=== PATIENT | female | born 1935 | race Caucasian/White ===

== ENCOUNTER 2017-04-16 16:57 | Inpatient (IN) | payer MEDICARE, OTHER ==
[~2017-04-16] VITALS: Ht 144.8 cm; Wt 61.0 kg
[2017-04-16] MEDS: Heparin 5,000 Unit/mL Inj SUBQ SCH ×2 (08:30→16:30)
[~2017-04-16 16:57] MED LIST: AMLO10TA3 PO; ATOR10TA66 PO; CODE30TA PO; HYDR25TA4 PO; LEVO88TA4 PO; LOSA100T29 PO; MINO100T PO; MORP-32 PO; ZOLP5TAB6 PO
[2017-04-16 17:12] VITALS: BP 128/52; PULSE 60; RESP 12; O2SAT 99
--- NOTE | 2017-04-16 18:20 | DRSVH ---
PROCEDURE: CT BRAIN WITHOUT CONTRAST ([id number]) INDICATIONS: acute drowsiness TECHNIQUE: Noncontrast 4.5 mm thick angled axial sections acquired from the foramen magnum to the vertex, with c oronal reformats. COMPARISON: None. FINDINGS: Image quality: Excellent. CSF spaces: Basal cisterns are patent. No extra-axial fluid collections. The ventricles are symmet giovanni in size and shape. Brain: No intracranial bleeds or masses. There is mild cerebral volume loss for age, with resultant ventricular and sulcal prominence. There are scattered periventricular and deep white matter chroni c small vessel ischemic changes. There is decreased valencia-white differentiation within the left tempor al lobe which appears overall hypodense with respect to the right temporal lobe. There is intracrania l internal carotid artery atherosclerosis. Skull and face: Calvarium and visualized facial bones appear intact, without suspicious lesions. Sinuses: Visualized sinuses and mastoids are clear. IMPRESSION: 1. Decreased valencia-white differentiation of the left temporal lobe and overall increased left temporal lobe hypodensity suggesting subacute or early chronic infarct. If further characterization is alma decker, noncontrast MRI of the brain may be helpful. This finding was discussed with at Dr. Puri 6:20 PM on 04/16/17. 2. Mild findings likely associated with chronic microvascular ischemic changes. Dictated by: Marcela Montague M.D. on 04/16/2017 at 18:14 Approved by: Marcela Montague M.D. on 04/16/2017 at 18:19
[2017-04-16 18:40] LABS: BASOPHILS % (AUTO) 0.4 % (0-3); EOSINOPHILS % (AUTO) 2.3 % (0-5); MONOCYTES % (AUTO) 8.9 % (4-12); Mean Corpuscular Hemoglobin 27.2 pg (27.0-35.0); Mean Corpuscular Volume 87.2 fL (81-100); NEUTROPHILS % (AUTO) 71.2 % (40-74); Platelet Count 266 bil/L (150-400)
[2017-04-16 18:57] LABS: Magnesium 2.2 mg/dL (1.6-2.6)
[2017-04-16 19:47] LABS: APPEARANCE,URINE CLEAR (CLEAR,HAZY); COLOR,URINE YELLOW (YELLOW); OCCULT BLOOD,URINE NEGATIVE (NEGATIVE); UROBILINOGEN,URINE NORMAL (NORMAL)
--- NOTE | 2017-04-16 19:51 | ED.REPORT ---
HPI-General Illness Date of Service Apr 16, 2017 ED Provider: Zonia Guzmán MD Patient is an 81 year old female with a history of stroke, diabetes, hypertension and paroxysmal atrial fibrillation who presents to the ED via EMS due to intermittent increasing fatigue. Per the patient's friend, the patient was at lunch and continued to nod off, had slurred speech and then became slumped over in her chair. She states that she remembers being at lunch with her friends but does not recall nodding off. The patient's family states that since they have gotten to the ED at 1700 the patient has been intermittently somnolent and confused, which is not normal for the patient. The patient reports that she had a sudden onset right sided headache yesterday that she rated as a 5/10 but it has since resolved. Patient also complains that she was not able to sleep last night because she had nocturia, which was unusual for her and experienced palpitations. She also woke up with bilateral neck pain this morning, which has also resolved. The patient also reports that two night ago she felt as though she was going to pass out and briefly lost her vision. She states that this has happened before and it was thought to be due to a previous TIA. Patient denies chest pain, numbness, weakness, shortness of breath , extremity problems or recent medication changes. She is not currently on any anticoagulants. Nursing Notes Stated Complaint: BACK PAIN Chief Complaint: General Complaint Nursing Notes Reviewed: Yes Allergies: Coded Allergies: Penicillins (Verified Allergy, Unknown, Rash, 06/08/16) meperidine (Verified Allergy, Unknown, Restlessness, 06/08/16) NSAIDS (Non-Steroidal Anti-Inflamma (Verified Adverse Reaction, Severe, BLEEDING, 04/16/17) Scheduled Amlodipine (Amlodipine) 10 Mg Tablet 2.5 MG PO DAILY Aspirin (Aspirin) 81 Mg Tablet 81 MG PO DAILY Atorvastatin Calcium (Atorvastatin Calcium) 10 Mg Tablet 10 MG PO DAILY Hydrochlorothiazide (Hydrochlorothiazide) 25 Mg Tablet 25 MG PO QAM Levothyroxine (Levothyroxine) 88 Mcg Tablet 88 MG PO DAILY Losartan Potassium (Losartan Potassium) 100 Mg Tablet 100 MG PO QAM Minocycline (Minocycline) 100 Mg Tablet 100 MG PO QAM Morphine Sulfate ER (Morphine Sulfate ER) 15 Mg Tablet 15 MG PO TID Zolpidem (Zolpidem) 5 Mg Tablet 2.5 MG PO HS Scheduled PRN Codeine Sulfate (Codeine Sulfate) 30 Mg Tablet 30 MG PO TID PRN PRN For Pain General Time Seen by MD: 19:50 Chief Complaint Altered mental status Hx Obtained From: Patient, Other family... Arrived By: Ambulance Sudden in Onset?: Yes Onset Occurred: 1 - 4 hours ago Symptom Duration: Intermittent Severity: Current: No pain currently Recent Healthcare: No recent hospitalization, Recent doctor visit Similar Sx Previous: Yes Past Medical History Past Medical History stroke Reports: Diabetes mellitus, Hypertension Reports: Atrial fibrillation Smoking History Former Smoker Social History Alcohol Use: Denies alcohol use Drug Use: Denies drug use Other Social History: Good social support Ambulatory Status Independent Review of Systems Full Review of Systems Constitutional: Reports: Fatigue, Denies: Chills, Fever, Weakness - generalized Eyes: Reports: Visual loss bilateral Respiratory: Denies: Non-productive cough, Shortness of breath Cardiovascular: Reports: Palpitations, Denies: Chest pain Musculoskeletal: Reports: Neck pain, Denies: Extremity pain Skin: Denies Itching, Denies Rash Neurologic: Reports: Change LOC, Confusion, Headache, Slurred speech, Syncope, Denies: Numbness, Weakness Complete sys rev & neg: except as marked. Physical Exam Vital Signs Vital Signs Date Time Temp Pulse Resp B/P Pulse Ox O2 Delivery O2 Flow Rate FiO2 04/16/17 17:12 36.5 60 12 128/52 99 Room Air Initial VS: Reviewed, Vital signs normal General/Constitutional: Awake, Alert, No acute distress Head / Eyes: Atraumatic, Normocephalic, PERRL, EOMI Neck: Atraumatic, Supple, Non-tender, No carotid bruit Respiratory / Chest: Atraumatic, Breath sounds NL, Breath sounds = bilat, No respiratory distress Cardiovascular: Heart rate NL, Regular rhythm, Heart sounds NL Abdomen: Atraumatic, Soft, Non-tender Skin: Atraumatic, Color NL, No rash, Warm, Dry Neurologic: Oriented X3, Speech NL, No motor deficits, No sensory deficits Psychiatric: Affect NL, Mood NL Interpretation & Diagnostics Lab Results Interpretation Result Diagram: 04/16/17 1823 04/16/17 1823 Test 04/16/17 18:23 04/16/17 19:30 04/16/17 19:31 White Blood Count 9.1th/mm3 (3.8-10.1) Red Blood Count 4.30mil/mm3 (3.90-5.20) Hemoglobin 11.7g/dL (12.0-15.6) Hematocrit 37.5% (35.0-46.0) Mean Corpuscular Volume 87.2fL (81-100) Mean Corpuscular Hemoglobin 27.2pg (27.0-35.0) Mean Corpuscular Hemoglobin Concent 31.2% (32.0-37.0) Red Cell Distribution Width 13.7% (12.3-15.4) Platelet Count 266bil/L (150-400) Neutrophils (%) (Auto) 71.2% (40-74) Lymphocytes (%) (Auto) 16.9% (14-46) Monocytes (%) (Auto) 8.9% (4-12) Eosinophils (%) (Auto) 2.3% (0-5) Basophils (%) (Auto) 0.4% (0-3) Hold Purple Top Tube Received (Received) Prothrombin Time 10.0sec (8.1-12.5) Prothromb Time International Ratio 0.94ratio Activated Partial Thromboplast Time 28.4sec (22.8-33.0) Hold Blue Top Tube Received (Received) Sodium Level 138mEq/L (134-144) Potassium Level 4.0mEq/L (3.5-5.2) Chloride Level 98mEq/L (97-108) Carbon Dioxide Level 25mmol/L (18-29) Blood Urea Nitrogen 38mg/dL (8-27) Creatinine 1.36mg/dL (0.57-1.00) Estimat Glomerular Filtration Rate 53mL/min (>59) Glucose Level 103mg/dL (60-99) Calcium Level 9.5mg/dL (8.5-10.1) Magnesium Level 2.2mg/dL (1.6-2.6) Total Bilirubin 0.2mg/dL (0.0-1.2) Aspartate Amino Transf (AST/SGOT) 16U/L (0-50) Alanine Aminotransferase (ALT/SGPT) 11U/L (0-32) Alkaline Phosphatase 84U/L (25-165) Total Protein 6.9g/dL (6.4-8.4) Albumin 4.1g/dL (3.4-5.0) Triglycerides Level 177mg/dL (0-149) Cholesterol Level 157mg/dL (100-199) LDL Cholesterol, Calculated 75.600mg/dL (0-99) VLDL Cholesterol 35.400mg/dL HDL Cholesterol 46mg/dL (>39) Cholesterol/HDL Ratio 3.41 (0.0-4.4) Hold Red Top Tube Received (Received) Hold [place] Top Tube Received (Received) Hold Urine Received (Received) Urine Color Yellow (YELLOW) Urine Appearance Clear (CLEAR,HAZY) Urine pH 6.0 (5.0-8.0) Urine Specific [place] 1.020 (1.003-1.035) Urine Protein Negativemg/dL (NEG,TRACE) Urine Glucose (UA) Negativemg/dL (NEGATIVE) Urine Ketones Negativemg/dL (NEGATIVE) Urine Occult Blood Negative (NEGATIVE) Urine Nitrite Negative (NEGATIVE) Urine Bilirubin Negative (NEGATIVE) Urine Urobilinogen Normalmg/dL (NORMAL) Urine Leukocyte Esterase Negative (NEGATIVE) Urine RBC 0-2/hpf (0-2) Urine WBC 0-5/hpf (0-5) Urine Epithelial Cells None/hpf (NONE-MOD) Urine Crystals None seen (NONE SEEN) Urine Bacteria Few/hpf (NONE-FEW) Urine Hyaline Casts None/lpf (NONE) Urine Granular Casts None seen (NONE SEEN) Urine Waxy Casts None seen (NONE SEEN) Urine Red Blood Cell Casts None seen (NONE SEEN) Urine White Blood Cell Casts None seen (NONE SEEN) Urine Mucus None seen (None Seen) Urine Trichomonas None seen (NONE SEEN) Urine Yeast None (NONE SEEN) Urinalysis Comment None Urine Culture Reflexed Not indicated ECG Interpretation ECG Interpretation: nonspecific inferior T wave changes Time: 17:35 Interpreted by: ED physician Normal ECG Interpretation: Normal rate (61), Normal sinus rhythm CT Head Interpretation IMPRESSION: 1. Decreased valencia-white differentiation of the left temporal lobe and overall increased left temporal lobe hypodensity suggesting subacute or early chronic infarct. If further characterization is warranted, noncontrast MRI of the brain may be helpful. This finding was discussed with at Dr. Puri 6:20 PM on 04/16/17. 2. Mild findings likely associated with chronic microvascular ischemic changes. Dictated by: Marcela Montague M.D. on 04/16/2017 at 18:14 Approved by: Marcela Montague M.D. on 04/16/2017 at 18:19 Interpretation / Wet Read by: Interpret - Radiologist Re-Eval/Medical Decision Med Decision/Clinical Course AV node the description is unclear if the patient had syncope versus a neurologic process. According to her daughter she has been intermittently confused today which is unusual for her. The patient has significant cardiac risk factors and has had a prior stroke so she will be admitted for further evaluation. She has not had any recent medication changes. Time of Eval: 20:45 Re-Evaluation/Progress Note: Discussed plan for admit. Patient understands and agrees to plan. All questions were addressed. Consultation : Referral / Consult Name: Osmar Charles MD Consulted With: Hospitalist Call Returned at: 20:37 Full Stack Net Developer: Agrees with eval, Agrees with plan, Accepts admit Counseled Regarding: Diagnosis, Lab results, Need for admission Discharge & Departure Primary Impression: Altered level of consciousness Additional Impression: Syncope Syncope type: unspecified Qualified Code: R55 - Syncope and collapse Disposition: ADMITTED TO HOSPITAL Discharge Condition All VS Reviewed: Yes Condition: Stable Referrals: Ten Douglass MD (PCP) Catherine Attestation Portions of this note were transcribed by Abby Crowe. I, Dr. Guzmán personally performed the history, physical exam and medical decision-making; I reviewed and confirmed the accuracy of the information in the transcribed note. Signed by: Catherine Knapp, 04/16/17 and 2015 copies to: Ten Douglass MD, Jena M MD Apr 16, 2017 19:51 Sidra Crowe Apr 16, 2017 20:14
[2017-04-16] MEDS ORDERED: Ondansetron 2 mg/mL 2 mL Inj IVPUSH PRN ×2 (20:45→22:40)
[2017-04-16] MEDS ORDERED: Alum-Mag Hydrox-Simeth 30 mL Suspension PO PRN ×2 (20:45→22:40)
[2017-04-16 21:04] VITALS: BP 124/62; PULSE 84; RESP 18; O2SAT 98
[2017-04-16 21:11] VITALS: BP 154/61; PULSE 70; RESP 16; O2SAT 98
[2017-04-16] MEDS ORDERED: ASPI-973 PO (21:33)
[2017-04-16 22:08] VITALS: PULSE 71
[2017-04-16] MEDS ORDERED: Labetalol 5 mg/mL 20 mL Inj IVPUSH PRN (22:40)
[2017-04-16] MEDS ORDERED: Polyethylene Glycol (PEG) 17 Gm Powder PO PRN (22:40)
[2017-04-16 23:08] LABS: INR 0.94 ratio
[2017-04-17] VITALS (7 sets, daily range): BP systolic 115–145; BP diastolic 56–71; PULSE 58–71; RESP 16–18; O2SAT 97–100
[2017-04-17] MEDS: Heparin 5,000 Unit/mL Inj SUBQ SCH ×4 (00:01→18:34)
[2017-04-17] MEDS: Lactated Ringer's 1,000 ML IV SCH ×2 (00:01→12:57)
[2017-04-17] MEDS: Morphine ER 15 mg (MS Contin) Tablet PO SCH ×3 (00:04→21:05)
[2017-04-17 01:21] LABS: APPEARANCE,URINE CLEAR (CLEAR,HAZY); COLOR,URINE STRAW (YELLOW); OCCULT BLOOD,URINE TRACE (NEGATIVE); UROBILINOGEN,URINE NORMAL (NORMAL)
--- NOTE | 2017-04-17 01:45 | PCM.HPMED ---
Subjective Date of Service Apr 17, 2017 Primary Provider: Admitting Physician: Osmar Charles MD Primary Care Physician: Ten Douglass MD Attending Physician: Osmar Charles MD Admit Status: From the Emergency Department, Remote Telemetry Chief Complaint: Decreased level of consciousness History of Present Illness: Barbara Travis is an 81-year-old woman with past medical history significant for diet controlled diabetes mellitus, hypertension, paroxysmal atrial fibrillation, and history of endarterectomy who presents for evaluation of decreased level of consciousness. Patient states she was in her normal state of health today until she went for dinner at 1545. The patient remembers arriving at the [facility] but cannot recall anything after this point. According to her friend who she was eating dinner with she began to have some slurred speech and nodded off and then proceeded to slump over in her chair. 911 was called and the patient was brought to the emergency department. The patient does not recall these events and according to the daughter and the ED physician she was quite groggy and repeatedly fell asleep initially on arrival to the hospital. At the time of my examination she was extremely clear and sharp and an excellent historian. She denies any preceding symptoms such as chest pain, shortness of breath, nausea, vomiting, headache, dizziness, lightheadedness, or palpitations. She does note that on Saturday, 04/15, she had a sharp headache that was located in the right temporal region along with right neck pain. The headache has since resolved although her neck is still slightly stiff. She states she has had previous workup for TIA but CT and MRI have never shown a definitive CVA. She was found to have a right 95% stenotic internal carotid artery which she underwent endarterectomy in 1999. Interestingly the patient also over the past 10 years has intermittently had episodes where suddenly she loses her vision. These episodes can last seconds to minutes and resolve on their own. On presentation to the ED the patient's vitals were temperature 36.5, pulse 60, respiratory rate 12, blood pressure 128/52, saturating 99% on room air. Labs were unremarkable aside from BUN of 38 and creatinine of 1.36 which the patient states is her baseline although I am unable to find labs to compare to. Urine tox screen was positive only for opiates which she does take morphine extended release 15 mg twice a day. The CT of the brain was completed in the ED which revealed decreased valencia white differentiation of the left temporal lobe and overall increased left temporal lobe hypodensity suggesting subacute to chronic infarct and mild findings likely associated with chronic microvascular ischemic changes. Review of Systems: Comprehensive review of systems was conducted with the patient and found to be negative except as noted above in HPI. Allergies Coded Allergies: Penicillins (Verified Allergy, Unknown, Rash, 06/08/16) meperidine (Verified Allergy, Unknown, Restlessness, 06/08/16) NSAIDS (Non-Steroidal Anti-Inflamma (Verified Adverse Reaction, Severe, BLEEDING, 04/16/17) Home Medications Amlodipine Atorvastatin Hydrochlorothiazide Levothyroxine Losartan Morphine extended release Zolpidem PMH Hypertension Paroxysmal atrial fibrillation Diabetes mellitus which is diet controlled Right internal carotid stenosis status post endarterectomy Surgical History Endarterectomy in 1999 Tonsillectomy Numerous breast biopsies Family History Mother - breast and uterine cancer Social History Hx Alcohol Use: No Hx Substance Use: No Smoking Status: Former Smoker (quit in 1999) Years of Smokin Living Arrangement: Independent Halfway Exam Vital Signs Vital Sign - Last Date Time Temp Pulse Resp B/P Pulse Ox O2 Delivery O2 Flow Rate FiO2 04/17/17 00:14 36.8 71 18 130/67 100 Room Air Exam General: No acute distress, well-developed, well-nourished, appropriately interactive HEENT: Normocephalic, atraumatic. No pain to palpation of the temporal area bilaterally. External ears without defect. Pupils equal, round, and reactive to light and accommodation. Anicteric sclerae, moist conjunctivae, and no lid lag. Oropharynx free of erythema and cobble stoning with moist mucosa. Neck: Supple with full range of motion. No jugular venous distension. No bruits. No lymphadenopathy or thyromegaly. Cardiovascular: Regular rate and rhythm with no murmurs, rubs, or gallops appreciated Pulmonary: Clear to auscultation bilaterally with no crackles, wheezes, or rhonchi. Normal respiratory effort with no use of accessory muscles. Abdomen: Bowel tones present. Soft, nontender, nondistended. No hepatosplenomegaly or masses appreciated. Extremities: No clubbing, cyanosis, edema, or lymphadenopathy appreciated. Skin: Normal temperature, turgor, and texture; no rash, ulcers, or subcutaneous nodules appreciated. Neurological: Cranial nerves grossly intact. Normal muscle strength, tone, and bulk. Reflexes, coordination, and sensory function within normal limits. No known gait impairment. Psychiatric: Normal mood and affect. Alert and oriented to person, place, and time. Lab and Diagnostics Result Diagram: 04/16/17182204/16/171822 X-Rays, CTs and MRIs CT BRAIN WITHOUT CONTRAST ([id number]) IMPRESSION: 1. Decreased valencia-white differentiation of the left temporal lobe and overall increased left temporal lobe hypodensity suggesting subacute or early chronic infarct. If further characterization is warranted, noncontrast MRI of the brain may be helpful. This finding was discussed with at Dr. Puri 6:20 PM on 04/16/17. 2. Mild findings likely associated with chronic microvascular ischemic changes. Dictated by: Marcela Montague M.D. on 04/16/2017 at 18:14 Approved by: Marcela Montague M.D. on 04/16/2017 at 18:19 12-lead ECG Normal sinus rhythm with a rate of 61 Assessment & Plan Barbara Travis is an 81-year-old woman with past medical history significant for diet controlled diabetes mellitus, hypertension, paroxysmal atrial fibrillation, and history of endarterectomy who presents for evaluation of decreased level of consciousness. Decreased level of consciousness, present on admission, resolved. Etiology unknown. Question whether patient had a syncopal episode versus TIA versus other etiology. Patient at this time is back to baseline. - Urine tox screen negative aside from opioids which is congruent with patient' s home regimen of morphine extended release. - TIA workup as below. - Vitamin B12 ordered and pending. - Monitor on continuous telemetry. Possible TIA, present on admission, active. Unsure whether patient had a TIA but symptoms included slurred speech and patient has history of right internal carotid artery stenosis status post endarterectomy. - Head CT without contrast results as above. - EKG showed normal sinus rhythm with rate of 61. - Monitor on telemetry to rule out atrial fibrillation. - MRI of the brain ordered for tomorrow. - Carotid ultrasound ordered. - Echo ordered. - Consider lower extremity ultrasound to rule out DVTs. - Allow for permissive hypertension to not treat unless SBP >220 or DBP >120 - Aspirin 325 mg given. - Atorvastatin 10 mg daily continued. Hypertension, present on admission, chronic. - Continue home regimen of amlodipine, hydrochlorothiazide, and losartan. Hypothyroidism, present on admission, chronic. - Continue home regimen of levothyroxine. Diabetes mellitus, present on admission, chronic. - Patient's last hemoglobin A1c was 5.8. She states that she is diet controlled does not take any medication. Patient is admitted under observation status with expected length of stay less than 2 midnights due to severity of presenting symptoms, risk of adverse event, and complexity of treatment plan. Pain Evaluation: Adequate Pain Control GI Prophylaxis: Not indicated VTE Prophylaxis: Sub-Q Heparin (Unfractionated), SCDs Resuscitation Status: CPR: Attempt Resuscitation KATHRYN MCKEON DO Apr 17, 2017 01:44
[2017-04-17 06:34] LABS: BASOPHILS % (AUTO) 0.6 % (0-3); EOSINOPHILS % (AUTO) 3.2 % (0-5); MONOCYTES % (AUTO) 8.7 % (4-12); Mean Corpuscular Hemoglobin 27.4 pg (27.0-35.0); Mean Corpuscular Volume 87.3 fL (81-100); Platelet Count 235 bil/L (150-400)
[2017-04-17] MEDS ORDERED: Morphine ER 15 mg (MS Contin) Tablet PO SCH (08:30)
--- NOTE | 2017-04-17 11:11 | DRSVH ---
PROCEDURE: US BILATERAL DUPLEX DOPPLER IMAGING OF THE CAROTIDS ([id number]) INDICATIONS: TIA TECHNIQUE: Color and pulse Doppler interrogation was performed of both carotid systems, with image documentation and velocity measurements. COMPARISON: None. FINDINGS: All stenosis calculations are based on NASCET criteria. Right side: Brachial blood pressure: Not measured Common Carotid Artery(Distal) PSV: 82.10 cm/s Internal Carotid Artery PSV- Proximal: 73.60 cm/s Mid-lon.60 cm/s Distal: 145.20 cm/s EDV - Proximal: 14.70 cm/s Mid-lon cm/s Distal: 42.90 cm/s External Carotid Artery(Proximal) PSV: 116.50 cm/s, 121.10 cm/s ICA/CCA PSV ratio: 1.77 Gorman scale imaging description: Mild echogenic plaque Percent internal carotid artery stenosis: 50-69%. Vertebral artery: Flow direction is antegrade. Left side: Brachial blood pressure: Not measured. Common Carotid Artery(Distal) PSV: 74.60 cm/s Internal Carotid Artery PSV - Proximal: 181.40 cm/s Mid-lon.20 cm/s, 154.80 cm/s Distal: 138.10 cm/s, 143.80 cm/s EDV - Proximal: 50.60 cm/s Mid-lon.10 cm/s, 53.80 cm/s Distal: 22.80 cm/s, 41.30 cm/s External Carotid Artery(Proximal) PSV: 97.90 cm/s ICA/CCA PSV ratio: 4.04 Gorman scale imaging description: Marginal echogenic and calcified plaque Percent internal carotid artery stenosis: 70% to near occlusion. Vertebral artery: Flow direction is antegrade. IMPRESSION: 1. Hemodynamically significant stenosis in the left ICA, 70% to near occlusion. Surgical consultation suggested. 2. 50-69% stenosis right ICA. 3. Both vertebral arteries show antegrade flow. Dictated by: Irvin Vincent M.D. on 04/17/2017 at 11:05 Approved by: Irvin Vincent M.D. on 04/17/2017 at 11:09
[2017-04-17] MEDS: [UNRECOGNIZED DRUG - OTHER] PO PRN ×2 (11:37→20:48)
--- NOTE | 2017-04-17 12:52 | DRSVH ---
PROCEDURE: MRI BRAIN WITHOUT CONTRAST ([id number]) INDICATIONS: R/O CVA TECHNIQUE: Non-contrast axial T1 spin echo, axial T2 fast spin echo, sagittal and axial FLAIR, coronal T2 fast s pin echo, axial gradient echo, axial diffusion and ADC through the brain. COMPARISON: [facility], CT, CT BRAIN WO CON, 04/16/2017, 17:52. [facility], MR, MR BRAIN WO CON, 04/16/2016, 7:16. FINDINGS: Image quality: Excellent. CSF spaces: Ventricles appear symmetric in size and shape. Basal cisterns are patent. No extra-axi al fluid collections. Brain: No intracranial bleeds or mass effects. There is cerebral volume loss for age. There are pe riventricular and deep white matter chronic small vessel ischemic changes. Brainstem appears normal. Diffusion-weighted images show no acute ischemic insults. No chronic ischemic insults. Normal int ravascular flow voids are present. Skull and face: Calvarial bone marrow is normal in overall signal. A small intraosseous hemangioma i s present within the left occipital bone. Orbits are normal. Sinuses: Sinuses and mastoids are clear. IMPRESSION: 1. No acute intracranial findings. Specifically, no acute or subacute infarct. 2. Mild findings likely associated with chronic microvascular ischemic changes. Dictated by: Marcela Montague M.D. on 04/17/2017 at 12:38 Approved by: Marcela Montague M.D. on 04/17/2017 at 12:50
--- NOTE | 2017-04-17 16:06 | PCM.PNMED ---
Subjective Date of Service Apr 17, 2017 Subjective Speech clear. No motor weakness. Patient states she does not remember any of events of last night. MRI negative for acute stroke. Carotid duplex shows left ICA 70% to complete occlusion Exam Vital Signs Vital Sign - Last Date Time Temp Pulse Resp B/P Pulse Ox O2 Delivery O2 Flow Rate FiO2 04/17/17 13:43 58 04/17/17 12:44 36.7 18 138/71 99 Room Air Intake and Output 04/16/17 04/16/17 04/17/17 Cumulative From/Thru 15:00 23:00 07:00 04/16/17 17:12 - 04/17/17 06:20 Intake Total 906 ml 906 ml Output Total 750 ml 750 ml Balance 156 ml 156 ml Intake Oral 400 ml 400 ml IV Total 506 ml 506 ml Output Urine Total 750 ml 750 ml # Bowel Movements 0 0 Lab and Diagnostics Result Diagram: 04/17/1751604/17/17516 X-Rays, CTs and MRIs CT BRAIN WITHOUT CONTRAST ([id number]) IMPRESSION: 1. Decreased valencia-white differentiation of the left temporal lobe and overall increased left temporal lobe hypodensity suggesting subacute or early chronic infarct. If further characterization is warranted, noncontrast MRI of the brain may be helpful. This finding was discussed with at Dr. Puri 6:20 PM on 04/16/17. 2. Mild findings likely associated with chronic microvascular ischemic changes. Dictated by: Marcela Montague M.D. on 04/16/2017 at 18:14 Approved by: Marcela Montague M.D. on 04/16/2017 at 18:19 PROCEDURE: US BILATERAL DUPLEX DOPPLER IMAGING OF THE CAROTIDS ([id number]) INDICATIONS: TIA IMPRESSION: 1. Hemodynamically significant stenosis in the left ICA, 70% to near occlusion. Surgical consultation suggested. 2. 50-69% stenosis right ICA. 3. Both vertebral arteries show antegrade flow. Dictated by: Irvin Vincent M.D. on 04/17/2017 at 11:05 PROCEDURE: MRI BRAIN WITHOUT CONTRAST ([id number]) INDICATIONS: R/O CVA IMPRESSION: 1. No acute intracranial findings. Specifically, no acute or subacute infarct. 2. Mild findings likely associated with chronic microvascular ischemic changes. Dictated by: Marcela Montague M.D. on 04/17/2017 at 12:38 12-lead ECG Normal sinus rhythm with a rate of 61 Assessment & Plan Barbara Travis is an 81-year-old woman with past medical history significant for diet controlled diabetes mellitus, hypertension, paroxysmal atrial fibrillation, and history of endarterectomy who presents for evaluation of decreased level of consciousness. # Breief loss of consciousness due to TIA , present on admission, resolved. - Urine tox screen negative aside from opioids which is congruent with patient' s home regimen of morphine extended release. - Monitor on continuous telemetry. #Recurrent TIA, present on admission, active. patient had a TIA symptoms included slurred speech and patient has history of right internal carotid artery stenosis status post endarterectomy. Patient had had also history of brief visual disturbance probably caused by TIA - Head CT without contrast results as above. MRI negative for acute stroke. - EKG showed normal sinus rhythm with rate of 61. - Monitor on telemetry to rule out atrial fibrillation. - MRI of the brain ordered for tomorrow. - Carotid shows left ICA 70% to near complete occlusion. Consulted surgery for evaluation of endarterectomy - Echo pending - Allow for permissive hypertension to not treat unless SBP >220 or DBP >120. His losartan and hydrochlorothiazide - Aspirin 325 mg given. - Increased Atorvastatin to 40 mg from 10 mg daily #Hypertension, present on admission, chronic. - Continue home regimen of amlodipine, hold hydrochlorothiazide, and losartan. #Hypothyroidism, present on admission, chronic. - Continue home regimen of levothyroxine. #Diabetes mellitus, present on admission, chronic. - Patient's last hemoglobin A1c was 5.8. She states that she is diet controlled does not take any medication. Disposition: Discharge home tomorrow pending surgical evaluation GI Prophylaxis: Not indicated VTE Prophylaxis: Sub-Q Heparin (Unfractionated), SCDs VTE Mechanical Devices: Intermittant Pneumatic CD Resuscitation Status: CPR: Attempt Resuscitation Kwame Cole MD Apr 17, 2017 16:06
--- NOTE | 2017-04-17 17:19 | DRSVH ---
[facility] [address] [place] [address] Echocardiogram Report Name: JOSÉ MIGUEL SNELL JStudy Date: 09/2017Height: 57 in Hospital Exam Location: [facility] Weight: 133 lb Gender: Female BSA: 1.5 m2 : 1935 Age: 81 yrs BP: 122/66 mmHg Reason For Study: TIA Ordering Physician: Juan Alberto Bojorquez Performed By: Aron Franz Referring Physician: Dr. Ten Douglass Interpretation Summary There is normal left ventricular wall thickness. The ejection fraction is estimated to be 60-65%. There is mild mitral regurgitation. The right ventricular systolic pressure is estimated at 20 mmHg assuming a right atrial pressure of 3 mm Hg. Compared to the prior echo report on 12.17.16, there is no significant change. Procedure: A two-dimensional transthoracic echocardiogram with color flow and Doppler was performed. The study quality was technically good. Comparison is made with the echocardiogram of 12/17/16. A saline contrast injection was performed to assess for cardiac shunting. The patient was in normal sinus rhythm during the exam. Left Ventricle: The left ventricle is normal in size. There is normal left ventricular wall thickness. The ejection fraction is estimated to be 60-65%. There are no focal wall motion abnormalities. Right Ventricle: The right ventricle is normal in size and function. Atria: The left atrium is mildly dilated. Right atrial size is normal. Injection of contrast documented no interatrial shunt. Mitral Valve: The mitral valve is normal in structure and function. There is mild mitral annular calcification. There is mild mitral regurgitation. Aortic Valve: The aortic valve is trileaflet. The aortic valve opens well. There is mild aortic valve sclerosis. No aortic regurgitation is present. Tricuspid Valve: The tricuspid valve is normal in structure and function. There is trace tricuspid regurgitation. The right ventricular systolic pressure is estimated at 20 mmHg assuming a right atrial pressure of 3 mm Hg. Pulmonic Valve: The pulmonic valve is normal in structure and function. There is trace pulmonic regurgitation. Great Vessels: The aortic root is normal size. The dimensions of the ascending aorta are normal. The pulmonary artery is normal size. The IVC is of normal diameter and collapses greater than 50% with a sniff. This suggests a low right atrial pressure of 3 mm Hg. Pericardium/ Pleura There is no pericardial effusion. There is no pleural effusion. MMode/2D Measurements & Calculations LVIDd: 4.4 cm LA dimension: 3.0 cm RA long axis Ao root diam LVIDs: 2.9 cm FS: 34.9 % LA A2 area: 17.8 cm RA area Aortic Jxn EPSS: 0.21 cm LA A4 area: 15.9 cm IVSd: 0.74 cm LA length (vol): 4.6 cm : 12.9 cm asc Aorta LVPWd: 0.82 cm LA vol: 52.3 ml RA vol: 29.3 mlDiam: 2.5 cm LA vol index RA : 19.4 mm2 IVC diam: 1.2 cm LV rachel. diameter/BSA LV sys. diameter/BSA (cm/m^2): 2.9 (cm/m^2): 1.9 Doppler Measurements & Calculations Ao V2 max MV E max mihai MV E/A: 0.93 TR max mihai : 124.6 cm/sec : 84.0 cm/sec Med Peak E' Mihai : 203.6 cm/sec Ao max PG MV A max mihai TR max PG : 6.2 mmHg : 90.2 cm/sec E/E' med: 13.6 : 16.6 mmHg Ao mean PG PA V2 max : 3.6 mmHg : 79.7 cm/sec PA mean PG PA Accel Time : 0.11 sec MV dec time Ao V2 mean PA V2 mean : 0.15 sec : 90.7 cm/sec : 59.9 cm/sec Ao V2 VTI: 32.7 cm PA pr(Accel) : 31.6 mmHg Electronically signed by: Michael Merchant on Reading Physician:04/17/2017 05:20 PM
[2017-04-18] VITALS (8 sets, daily range): BP systolic 106–152; BP diastolic 58–78; PULSE 55–68; RESP 16; O2SAT 98–100
[2017-04-18] MEDS: Heparin 5,000 Unit/mL Inj SUBQ SCH ×3 (02:18→18:20)
[2017-04-18] MEDS: Morphine ER 15 mg (MS Contin) Tablet PO SCH ×3 (08:49→20:42)
[2017-04-18] MEDS: [UNRECOGNIZED DRUG - OTHER] PO PRN ×2 (08:58→15:22)
--- NOTE | 2017-04-18 15:52 | PCM.PNMED ---
Subjective Date of Service Apr 18, 2017 Subjective Patient reportedly had a brief episode of slurring of speech overnight per daughter at bedside. Speech back to baseline and clear now. No motor or sensory deficit complained Exam Vital Signs Vital Sign - Last Date Time Temp Pulse Resp B/P Pulse Ox O2 Delivery O2 Flow Rate FiO2 04/18/17 13:21 36.9 65 16 111/77 99 Room Air Intake and Output 04/17/17 04/17/17 04/18/17 Cumulative From/Thru 15:00 23:00 07:00 04/16/17 17:12 - 04/18/17 06:23 Intake Total 1566 ml 400 ml 2872 ml Output Total 750 ml 1500 ml Balance 1566 ml -350 ml 1372 ml Intake Oral 600 ml 400 ml 1400 ml IV Total 966 ml 1472 ml Output Urine Total 750 ml 1500 ml # Voids 5 5 # Bowel Movements 0 0 0 Exam General: No acute distress, well-developed, well-nourished, appropriately interactive HEENT: Normocephalic, atraumatic. No pain to palpation of the temporal area bilaterally. External ears without defect. Pupils equal, round, and reactive to light and accommodation. Anicteric sclerae, moist conjunctivae, and no lid lag. Oropharynx free of erythema and cobble stoning with moist mucosa. Neck: Supple with full range of motion. No jugular venous distension. No bruits. No lymphadenopathy or thyromegaly. Cardiovascular: Regular rate and rhythm with no murmurs, rubs, or gallops appreciated Pulmonary: Clear to auscultation bilaterally with no crackles, wheezes, or rhonchi. Normal respiratory effort with no use of accessory muscles. Abdomen: Bowel tones present. Soft, nontender, nondistended. No hepatosplenomegaly or masses appreciated. Extremities: No clubbing, cyanosis, edema, or lymphadenopathy appreciated. Skin: Normal temperature, turgor, and texture; no rash, ulcers, or subcutaneous nodules appreciated. Neurological: Cranial nerves grossly intact. Normal muscle strength, tone, and bulk. Reflexes, coordination, and sensory function within normal limits. No known gait impairment. Psychiatric: Normal mood and affect. Alert and oriented to person, place, and time. IVs and Medications Medications Reviewed: Medications were reviewed in detail Lab and Diagnostics Result Diagram: 7/12/17 0517 7/12/17 0517 X-Rays, CTs and MRIs CT BRAIN WITHOUT CONTRAST ([id number]) IMPRESSION: 1. Decreased valencia-white differentiation of the left temporal lobe and overall increased left temporal lobe hypodensity suggesting subacute or early chronic infarct. If further characterization is warranted, noncontrast MRI of the brain may be helpful. This finding was discussed with at Dr. Puri 6:20 PM on 04/16/17. 2. Mild findings likely associated with chronic microvascular ischemic changes. Dictated by: Marcela Montague M.D. on 04/16/2017 at 18:14 Approved by: Marcela Montague M.D. on 04/16/2017 at 18:19 PROCEDURE: US BILATERAL DUPLEX DOPPLER IMAGING OF THE CAROTIDS ([id number]) INDICATIONS: TIA IMPRESSION: 1. Hemodynamically significant stenosis in the left ICA, 70% to near occlusion. Surgical consultation suggested. 2. 50-69% stenosis right ICA. 3. Both vertebral arteries show antegrade flow. Dictated by: Irvin Vincent M.D. on 04/17/2017 at 11:05 PROCEDURE: MRI BRAIN WITHOUT CONTRAST ([id number]) INDICATIONS: R/O CVA IMPRESSION: 1. No acute intracranial findings. Specifically, no acute or subacute infarct. 2. Mild findings likely associated with chronic microvascular ischemic changes. Dictated by: Marcela Montague M.D. on 04/17/2017 at 12:38 12-lead ECG Normal sinus rhythm with a rate of 61 Cardiac Echo Impressions Interpretation Summary There is normal left ventricular wall thickness. The ejection fraction is estimated to be 60-65%. There is mild mitral regurgitation. The right ventricular systolic pressure is estimated at 20 mmHg assuming a right atrial pressure of 3 mm Hg. Compared to the prior echo report on 12.17.16, there is no significant change. Assessment & Plan Barbara Travis is an 81-year-old woman with past medical history significant for diet controlled diabetes mellitus, hypertension, paroxysmal atrial fibrillation, and history of endarterectomy who presents for evaluation of decreased level of consciousness. # Breief loss of consciousness due to TIA , present on admission, resolved. - Urine tox screen negative aside from opioids which is congruent with patient' s home regimen of morphine extended release. - Monitor on continuous telemetry. #Recurrent TIAs, present on admission, active. patient had a TIA symptoms included slurred speech and patient has history of right internal carotid artery stenosis status post endarterectomy. Patient had also history of brief visual disturbance probably caused by TIA few weeks prior to presentation. She also reportedly had a episode of slurring of speech last night, -Discussed case with neurology Dr. Diop , he recommends double antiplatelet with Plavix and aspirin pending surgical evaluation. He also initially considered CT angiogram of brain to assess intracranial stenoses but deferred due to borderline creatinine clearance. Recommends urgent surgical evaluation. -spoke with surgery , he will evaluate the patient later today after OR , will keep patient nothing by mouth after midnight in case surgical intervention is decided - Head CT without contrast results as above. MRI negative for acute stroke. - EKG showed normal sinus rhythm with rate of 61. - Monitor on telemetry to rule out atrial fibrillation. - Carotid shows left ICA 70% to near complete occlusion. Consulted surgery for evaluation of endarterectomy - Echo unremarkable - Allow for permissive hypertension to not treat unless SBP >220 or DBP >120. Hold losartan, amlodipine and hydrochlorothiazide - Aspirin 325 mg given. Started Plavix 75 mg daily today 04/18 - Increased Atorvastatin to 40 mg from 10 mg daily #Hypertension, present on admission, chronic. - hold home regimen of amlodipine, hydrochlorothiazide, and losartan. #Hypothyroidism, present on admission, chronic. - Continue home regimen of levothyroxine. #Diabetes mellitus, present on admission, chronic. - Patient's last hemoglobin A1c was 5.8. She states that she is diet controlled does not take any medication. Disposition: Pending surgical evaluation GI Prophylaxis: Not indicated VTE Prophylaxis: Sub-Q Heparin (Unfractionated), SCDs VTE Mechanical Devices: Intermittant Pneumatic CD Resuscitation Status: CPR: Attempt Resuscitation Kwame Cole MD Apr 18, 2017 15:52
--- NOTE | 2017-04-18 22:07 | CONS ---
[address] [address] CONSULTATION REPORT PATIENT: JOSÉ MIGUEL SNELL : 1935 MR#: [id number] ADMIT: 04/16/2017 JOB ID: [id number] DATE OF SERVICE: 04/18/2017 CHIEF COMPLAINT: Decreased level of consciousness. HISTORY OF PRESENT ILLNESS: I am asked to evaluate the patient at the request of Dr. Cole. Actually, General Surgery was consulted by phone yesterday with Dr. Solomon, who does not perform carotid surgery, so I was asked to evaluate her today. The patient has a personal history of carotid stenosis, having undergone a right carotid endarterectomy by Dr. Armando Garcia in 1999. She was admitted to the hospitalist service here on April 17 after she presented with an episode of slurred speech at dinner followed by an episode where she slumped over in her chair and after being aroused had no recollection of the event which seemed to have taken several minutes. She was brought in by EMS. On further questioning, she has had multiple episodes over the past year where she has transient loss of vision. It is difficult to get much information about this from her, but it sounds like it happens in both eyes and can happen suddenly and lasts for several minutes and occasionally longer and resolves on its own. She also describes episodes of word-finding difficulties over the past several months. She was worked up with a CT scan of the brain which showed some chronic microvascular ischemic changes. There is some decreased valencia-white differentiation in the left temporal lobe suggesting subacute or early chronic infarct, but brain MRI was recommended. MRI of the brain showed no acute or subacute infarct. There were findings associated with chronic microvascular ischemic changes. She had a carotid duplex which showed that on the right side she had 50% to 69% internal carotid artery stenosis. On the left, she had more high-grade stenosis, estimated at 70% to near occlusion. Peak systolic velocity in the internal carotid artery on the right was 301.2 cm/second, with an end-diastolic velocity max of 53.8. IC to CC ratio was 4.04. There was echogenic and calcified plaque. Flow in both vertebral arteries was antegrade. Today, she basically feels like her normal self, although she is fatigued and has had right-sided headache. She did have an episode of slurred speech overnight last night as well, but her speech has been at baseline all day today. PAST MEDICAL HISTORY: Diet-controlled diabetes mellitus, hypertension, paroxysmal atrial fibrillation, carotid artery stenosis, TIAs, hypothyroidism, hyperlipidemia. PAST SURGICAL HISTORY: Right carotid endarterectomy with patch angioplasty in 1999, tonsillectomy, multiple breast biopsies. SOCIAL HISTORY: She quit smoking in 1999 but had a 16-apnn-cyse history. She does not drink alcohol and does not use illicit drugs. FAMILY HISTORY: Mother had breast and uterine cancer. REVIEW OF SYSTEMS: A 10-point review of systems is negative except as described in history of present illness. Specifically, she denies weakness. PHYSICAL EXAMINATION: Body mass index 29.6, temperature 36.6, pulse 58, blood pressure 151/78, saturation 99% on room air. In general, she is sitting up in bed, in no acute distress. HEENT: Sclerae are anicteric. Mucous membranes are moist. Neck: She has a right vertical neck scar. There is a mild bruit in the left internal carotid artery. There is no jugular venous distention. Chest is clear. Heart: Regular rate and rhythm. No murmurs. Extremities: Radial pulses are 2/2 bilaterally. Dorsalis pedis and posterior tibial pulses are 2/2 bilaterally. There is no peripheral edema. Neuro: Cranial nerves 2-12 are intact. Motor and sensory function are grossly intact and strength is full. She is alert and oriented x3 with normal speech. IMAGING: As described in history of present illness. LABORATORY: White blood cell count is 8.1, hematocrit 35.1, creatinine 1.17. INR 0.94. ASSESSMENT AND PLAN: An 81-year-old woman with symptomatic high-grade left internal carotid stenosis with crescendo or recurrent transient ischemic attacks. I do recommend that she undergo a left carotid endarterectomy with patch angioplasty, and I think the best timing would be for her to undergo surgery prior to her being discharged from the hospital. We talked about the technical aspects of surgery, and we discussed risks of surgery, including, but not limited to, bleeding, stroke, nerve injuries, heart attack. I have talked to my partner, Dr. Low Santillan, who will meet her and discuss the operation with her tomorrow as well. The tentative plan will be to proceed with surgery tomorrow with Dr. Santillan. She will be made n.p.o. after midnight. All her questions were answered.
[2017-04-19] VITALS (29 sets, daily range): BP systolic 90–156; BP diastolic 35–74; PULSE 54–80; RESP 10–18; O2SAT 94–100
[2017-04-19] MEDS: Heparin 5,000 Unit/mL Inj SUBQ SCH ×3 (01:23→16:30)
[2017-04-19 06:32] LABS: BASOPHILS % (AUTO) 0.6 % (0-3); EOSINOPHILS % (AUTO) 2.4 % (0-5); Mean Corpuscular Hemoglobin 26.9 pg (27.0-35.0); Mean Corpuscular Volume 87.1 fL (81-100); NEUTROPHILS % (AUTO) 65.5 % (40-74); Platelet Count 243 bil/L (150-400)
[2017-04-19 07:00] LABS: INR 0.93 ratio
[2017-04-19] MEDS: [UNRECOGNIZED DRUG - OTHER] PO PRN ×2 (07:51→20:50)
[2017-04-19] MEDS: Morphine ER 15 mg (MS Contin) Tablet PO SCH ×3 (07:57→20:21)
--- NOTE | 2017-04-19 11:39 | PROG NOTE ---
[address] [address] PROGRESS NOTE PATIENT: JOSÉ MIGUEL SNELL : 1935 MR#: [id number] ADMIT: 04/16/2017 JOB ID: [id number] DATE: 04/19/2017 SUBJECTIVE: The patient is 81 years old. She has had intermittent episodes of difficulty speaking. She is described at her halfway home as having slurred speech. She is seen together with one of her daughters but her other daughter who is not present when I interviewed her also observed slurred speech on the night of admission. She has a past history of a right carotid endarterectomy done [address] Armando Garcia. She has a carotid duplex exam that shows progression from a previous duplex exam. She currently has on the left side a peaked left internal carotid systolic velocity of 300 and end-diastolic of 50, with an internal carotid to common carotid peak systolic velocity ratio of 4. There is echogenic and calcific plaque identified. It is in the range of 70% to near occlusion. Previously, it was in the range of 50% to 69%. She has a 50% to 69% stenosis of the right internal carotid and bilateral antegrade flow of her vertebrals. Her MR scan of her brain shows no stroke. She is currently on aspirin and Plavix. Plavix was started yesterday. She had an echocardiogram that shows an ejection fraction of 60% to 65%. There is mild mitral regurgitation. There is no significant change compared to the previous echo of December 17, 2016. She has a history of paroxysmal atrial fibrillation but not of coronary artery disease. She quit smoking years ago. She has also been on amlodipine, atorvastatin, hydrochlorothiazide and losartan. She also is on L-thyroxine. She has never had a left neck operation. SOCIAL HISTORY: She lives in [place]. She has two supportive daughters, and Cyndi is present today. REVIEW OF SYSTEMS: Currently no active left hemispheric symptoms. She also has not had symptoms of left amaurosis fugax, right upper or lower extremity motor or sensory symptoms. PHYSICAL EXAMINATION: She is pleasant, alert, very talkative and speech sounds normal, and she and her daughter believe it is normal. In no distress. BMI 29. Brachial blood pressure 129/61, pulse 61 and regular, respiratory rate 16, O2 sat 99% on room air. Temperature 36.5. HEENT: PERRLA. EOMI. Wears glasses. Neck: I do not appreciate a right carotid bruit. She has a right neck incision consistent with her right carotid endarterectomy. Cardiac exam: Regular rhythm. I did not appreciate any murmurs. Lungs: Clear. Neurologic exam: Appropriate affect. No obvious cranial nerve deficits. No lateralizing signs. Gait not tested. IMAGING: Carotid duplex as discussed above. LABORATORY DATA: Calculated creatinine clearance is 27 based on age, weight, creatinine and gender. DISCUSSION: I discussed the options with the patient. She has a statistically better chance of not having a stroke if she undergoes a left carotid endarterectomy today or within the next two weeks than if she does not. However, she clearly has a greater risk of stroke with this carotid endarterectomy than what she did in 1999, when she was asymptomatic. I estimated to her and her daughter that her stroke risk today is about 10%. However, there is a 17% reduction in stroke risk within two weeks if she has a carotid endarterectomy versus medical management. She also has a greater risk of bleeding because of dual platelet therapy. There are other potential risks including, but not limited to, injury to the 12th cranial nerve and to the marginal mandibular branch of the facial nerve. I discussed the typical recovery. Having discussed all these issues in detail and spending approximately 1 hour with the patient, she and her daughter agree to proceed, and she is scheduled for carotid endarterectomy today with shunt and patch. She is aware that she may require platelet transfusion. The patient seen for decision to operate. Time spent with patient and daughter and in coordination of care one hour STEFFANY
[2017-04-19] MEDS ORDERED: Lactated Ringer's 1,000 ML IV ONE ×2 (12:17→14:25)
[2017-04-19] MEDS ORDERED: Heparin 1,000 Unit/mL 10 mL Inj IRRIGATION ONE (13:32)
[2017-04-19] MEDS ORDERED: Bupivacaine-MPF 0.5% W/EPI 30 mL Inj INJ ONE (13:34)
[2017-04-19] MEDS ORDERED: Heparin 1,000 Unit/mL 10 mL Inj IVPUSH ONE (14:16)
--- NOTE | 2017-04-19 14:47 | PCM.PNMED ---
Subjective Date of Service Apr 19, 2017 Subjective Patient eventually went for carotid endarterectomy. Evaluated earlier Exam Vital Signs Vital Sign - Last Date Time Temp Pulse Resp B/P Pulse Ox O2 Delivery O2 Flow Rate FiO2 04/19/17 10:00 36.1 60 16 156/74 94 Room Air Intake and Output 04/18/17 04/18/17 04/19/17 Cumulative From/Thru 15:00 23:00 07:00 04/16/17 17:12 - 04/19/17 05:49 Intake Total 600 ml 3472 ml Output Total 650 ml 2150 ml Balance -50 ml 1322 ml Intake Oral 600 ml 2000 ml IV Total 1472 ml Output Urine Total 650 ml 2150 ml # Voids 5 # Bowel Movements 1 1 Exam General: No acute distress, well-developed, well-nourished, appropriately interactive HEENT: Normocephalic, atraumatic. No pain to palpation of the temporal area bilaterally. External ears without defect. Pupils equal, round, and reactive to light and accommodation. Anicteric sclerae, moist conjunctivae, and no lid lag. Oropharynx free of erythema and cobble stoning with moist mucosa. Neck: Supple with full range of motion. No jugular venous distension. No bruits. No lymphadenopathy or thyromegaly. Cardiovascular: Regular rate and rhythm with no murmurs, rubs, or gallops appreciated Pulmonary: Clear to auscultation bilaterally with no crackles, wheezes, or rhonchi. Normal respiratory effort with no use of accessory muscles. Abdomen: Bowel tones present. Soft, nontender, nondistended. No hepatosplenomegaly or masses appreciated. Extremities: No clubbing, cyanosis, edema, or lymphadenopathy appreciated. Skin: Normal temperature, turgor, and texture; no rash, ulcers, or subcutaneous nodules appreciated. Neurological: Cranial nerves grossly intact. Normal muscle strength, tone, and bulk. Reflexes, coordination, and sensory function within normal limits. No known gait impairment. Psychiatric: Normal mood and affect. Alert and oriented to person, place, and time. IVs and Medications Medications Reviewed: Medications were reviewed in detail Lab and Diagnostics Result Diagram: 04/19/17 0545 04/19/17 0545 X-Rays, CTs and MRIs CT BRAIN WITHOUT CONTRAST ([id number]) IMPRESSION: 1. Decreased valencia-white differentiation of the left temporal lobe and overall increased left temporal lobe hypodensity suggesting subacute or early chronic infarct. If further characterization is warranted, noncontrast MRI of the brain may be helpful. This finding was discussed with at Dr. Puri 6:20 PM on 04/16/17. 2. Mild findings likely associated with chronic microvascular ischemic changes. Dictated by: Marcela Montague M.D. on 04/16/2017 at 18:14 Approved by: Marcela Montague M.D. on 04/16/2017 at 18:19 PROCEDURE: US BILATERAL DUPLEX DOPPLER IMAGING OF THE CAROTIDS ([id number]) INDICATIONS: TIA IMPRESSION: 1. Hemodynamically significant stenosis in the left ICA, 70% to near occlusion. Surgical consultation suggested. 2. 50-69% stenosis right ICA. 3. Both vertebral arteries show antegrade flow. Dictated by: Irvin Vincent M.D. on 04/17/2017 at 11:05 PROCEDURE: MRI BRAIN WITHOUT CONTRAST ([id number]) INDICATIONS: R/O CVA IMPRESSION: 1. No acute intracranial findings. Specifically, no acute or subacute infarct. 2. Mild findings likely associated with chronic microvascular ischemic changes. Dictated by: Marcela Montague M.D. on 04/17/2017 at 12:38 12-lead ECG Normal sinus rhythm with a rate of 61 Cardiac Echo Impressions Interpretation Summary There is normal left ventricular wall thickness. The ejection fraction is estimated to be 60-65%. There is mild mitral regurgitation. The right ventricular systolic pressure is estimated at 20 mmHg assuming a right atrial pressure of 3 mm Hg. Compared to the prior echo report on 12.17.16, there is no significant change. Assessment & Plan Barbara Travis is an 81-year-old woman with past medical history significant for diet controlled diabetes mellitus, hypertension, paroxysmal atrial fibrillation, and history of endarterectomy who presents for evaluation of decreased level of consciousness. # Breief loss of consciousness and slurring of speech due to TIA , present on admission, resolved. - Urine tox screen negative aside from opioids which is congruent with patient' s home regimen of morphine extended release. - Monitor on continuous telemetry. #Recurrent TIAs, present on admission, active. patient had a TIA symptoms included slurred speech and patient has history of right internal carotid artery stenosis status post endarterectomy. Patient had also history of brief visual disturbance probably caused by TIA few weeks prior to presentation. She also reportedly had a episode of slurring of speech on 04/17 after current hospitalization, -Discussed case with neurology Dr. Diop , he recommends double antiplatelet with Plavix and aspirin pending surgical intervention. He also initially considered CT angiogram of brain to assess intracranial stenoses but deferred due to borderline creatinine clearance. Recommends urgent surgical intervention -Patient going to OR for endarterectomy today - Head CT without contrast results as above. MRI negative for acute stroke. - EKG showed normal sinus rhythm with rate of 61. - telemetry no arrythmia so far - Carotid shows left ICA 70% to near complete occlusion. Consulted surgery for evaluation of endarterectomy - Echo unremarkable - Allow for permissive hypertension to not treat unless SBP >220 or DBP >120. Hold losartan, amlodipine and hydrochlorothiazide - Aspirin 325 mg given. Started Plavix 75 mg daily 04/18 - Increased Atorvastatin to 40 mg from 10 mg daily #Hypertension, present on admission, chronic. - hold home regimen of amlodipine, hydrochlorothiazide, and losartan. #Hypothyroidism, present on admission, chronic. - Continue home regimen of levothyroxine. #Diabetes mellitus, present on admission, chronic. - Patient's last hemoglobin A1c was 5.8. She states that she is diet controlled does not take any medication. Disposition: Pending postop course GI Prophylaxis: Not indicated VTE Prophylaxis: Sub-Q Heparin (Unfractionated), SCDs VTE Mechanical Devices: Intermittant Pneumatic CD Resuscitation Status: CPR: Attempt Resuscitation Kwame Cole MD Apr 19, 2017 14:46
[2017-04-19] MEDS ORDERED: Phenylephrine/NS-PF 100 mCg/mL 5 mL Syringe IVPUSH ONE (14:50)
[2017-04-19] MEDS ORDERED: fentaNYL-PF 50 mCg/mL 2 mL Inj ONE (14:50)
[2017-04-19] MEDS ORDERED: Rocuronium 10 mg/mL 5 mL Inj ONE (14:50)
[2017-04-19] MEDS ORDERED: Succinylcholine Chloride 20 mg/mL 5 mL Inj ONE (14:50)
[2017-04-19] MEDS ORDERED: Ondansetron 2 mg/mL 2 mL Inj ONE (14:50)
[2017-04-19] MEDS ORDERED: Lidocaine PF 1% 30 mL Inj ONE (14:50)
[2017-04-19] MEDS ORDERED: Ketamine 10 mg/mL 20 mL Inj ONE (14:50)
[2017-04-19] MEDS ORDERED: Propofol 10,000 mCg/mL 20 mL Inj ONE (14:50)
[2017-04-19] MEDS ORDERED: EPHEDrine/NS 5 mg/mL 5 mL Syringe ONE (14:50)
--- NOTE | 2017-04-19 14:54 | PCM.HPANE ---
Patient Data Date of Service: Apr 19, 2017 Surgeon Admitting Provider:Osmar Charles MD Attending Provider:Kwame Cole MD Primary Care Physician:Ten Douglass MD Other Provider: Reason for Visit Tia,Altered Mental Status TIA,ALTERED MENTAL STATUS Ht/WT & BMI Height (Feet): 4 Height (Inches): 9.00 Weight (Kilograms): 61.000 Body Mass Index 28.59 Allergies Coded Allergies: Penicillins (Verified Allergy, Unknown, Rash, 06/08/16) meperidine (Verified Allergy, Unknown, Restlessness, 06/08/16) NSAIDS (Non-Steroidal Anti-Inflamma (Verified Adverse Reaction, Severe, BLEEDING, 04/16/17) Past Anesthesia History Anesthesia History: Denies:: Abnormal Airway Diabetes History Hx Diabetes?: Yes (diet controlled) Current Bedside Blood Glucose: 92 MRSA MRSA: No Medications Blood Thinner: Aspirin, Plavix Hypertension Medication: Yes Home Meds Incl Beta Sienna: No Reported Medications Aspirin 81 Mg [id number] Mg PO DAILY Ref 0 04/16/17 Atorvastatin Calcium 10 Mg [id number] Mg PO DAILY #90 06/08/16 Amlodipine 10 Mg Tablet2.5 Mg PO DAILY #90 06/08/16 Losartan Potassium 100 Mg [id number] Mg PO QAM #90 06/08/16 Hydrochlorothiazide 25 Mg [id number] Mg PO QAM #90 06/08/16 Minocycline 100 Mg [id number] Mg PO QAM #90 06/08/16 Zolpidem 5 Mg Tablet2.5 Mg PO HS #30 06/08/16 Morphine Sulfate ER 15 Mg [id number] Mg PO TID #84 06/08/16 Codeine Sulfate 30 Mg Joyhxl87 Mg PO TID PRN For Pain #252 06/08/16 Levothyroxine 88 Mcg Oibfzc62 Mg PO DAILY #90 06/08/16 History History of ENT Problems?: Yes HEENT History: Positive for:: Cataracts (resolved) Dysphagia (OCCASSIONALLY) Denture Type: None Teeth Condition: Within Normal Limits Other HEENT Pertinent History: mac degeneration Hx of Heart Problems?: Yes Cardiovascular History: Positive for:: Hypertension Denies:: Abdominal Aortic Aneurism Congestive Heart Failure Hx of Respiratory Problem?: No Respiratory History: Denies:: Asthma COPD Other Resp Pertinent History: pollen allergies Hx Neurologic Problems?: Yes Neurological History: Positive for:: CVA Headaches (migraines resolved after menopause) Hx of GI Problems?: No Hx of Problems?: Yes Genitourinary History: Positive for:: Kidney Stones HX of Peritoneal Dialysis: No Female Hx: Denies:: Currently Hx Musculoskeletal Problems?: Yes Hx of Psycho/Social Problems?: Yes Psycho Social History: Positive for:: Hx Depression (resolved) Hx Surgeries?: Yes (Carotid, breast biopsy, hyst, tonsil/adenoids) Hx Any Other Health Problems?: Yes Other History: Positive for:: Hospitalization Thyroid Disease Denies:: Cancer History Blood Transfusions: Positive for:: Accept Blood Products? Denies:: Blood Transfusions Hx Diabetes: Yes (diet controlled)Bedside Blood Glucose: 92 Hx Alcohol Use: NoHx Substance Use: No Smoking Status: Former Smoker (quit in 1999) Have You Smoked inLast 12 mo: No Stop/Bang Treated for Sleep Apnea?: No Do You Have a CPAP Machine?: No S-Snoring: Do You Snore Loudly: Yes T-Tired: feel tired, fatigued: Yes O-Obsered: Observed not breath: Yes P-Blood Pressure: treated: Yes B- Body Mass Index > 35 kg/m2: No A- Age over 50: Yes N- Neck Large Circumference: No G- Gender Male: No LESLYE Total Score: 4 LESLYE Risk Assessment: Low Risk, <3 Yes LESLYE Category 2: Yes Risk Assessment Category Category 1A: Patient has history of documented sleep apnea, and HAS NOT received any narcotic, sedative or anesthesia administration during this stay. Category 1B: Patient has history of documented sleep apnea, and HAS received any narcotic , sedative or anesthesia administration during this stay Category 2: Patient has SUSPECTED Obstructive Sleep Apnea, and HAS received any narcotic , sedative or anesthesia administration during this stay. Category 3: Patient has SUSPECTED Obstructive Sleep Apnea and HAS NOT received narcotic, sedative or anesthesia administration during this stay. Category 4: Outpatient in Procedural Areas with known sleep apnea or who screen positive for High Risk via the STOP/BANG questionnaire. Exam Exam Vital Signs Vital Signs Date Time Temp Pulse Resp B/P Pulse Ox O2 Delivery O2 Flow Rate FiO2 04/19/17 10:00 36.1 60 16 156/74 94 Room Air 04/19/17 08:00 61 General Appearance: Alert, Oriented X3 HEENT/AIRWAY: MP 2 Lungs: Clear to Auscultation Heart: Exam Unremarkable Meds/Labs/Diagnostics Admission Meds Current Medications Morphine Sulfate (MS Contin) 15 mg TID PO Last administered on 04/19/17 07:57 ; Start 04/18/17 at 20:30 Heparin Sodium (Porcine) (Heparin Inj) 10,000 unit STK-MED ONCE IRRIGATION Last administered on 04/19/17 13:32; Start 04/19/17 at 13:32; Stop 04/19/17 at 14:01; Status DC Bupivacaine HCl/ Epinephrine Bitart (Sensorcaine-MPF 0.5% W/EPI Inj) 30 ml STK- MED ONCE INJ Last administered on 04/19/17 13:34; Start 04/19/17 at 13:34; Stop 04/19/17 at 14:01; Status DC Cefazolin Sodium 2 gm 2 gm STK-MED ONCE IVPUSH Last administered on 04/19/17 13:11; Start 04/19/17 at 13:11; Stop 04/19/17 at 14:01; Status DC Lactated Ringer's (Lr) 1,000 ml @ ud STK-MED ONCE IV Last administered on 04/19 12:17; Start 04/19/17 at 12:17; Stop 04/19/17 at 14:01; Status DC Heparin Sodium (Porcine) 48775 unit 10,000 unit STK-MED ONCE IVPUSH Last administered on 04/19/17 14:16; Start 04/19/17 at 14:16; Stop 04/19/17 at 14:17 ; Status DC Lactated Ringer's (Lr) 1,000 ml @ ud STK-MED ONCE IV Last administered on 04/19 14:25; Start 04/19/17 at 14:25; Stop 04/19/17 at 14:32; Status DC Bedside Blood Glucose: 92 Labs Test 04/16/17 18:23 04/16/17 19:30 04/16/17 22:00 04/17/17 00:42 Hold Purple Top Tube Received (Received) Activated Partial Thromboplast Time 28.4sec (22.8-33.0) Hold Blue Top Tube Received (Received) Hemoglobin A1c 5.9% (4.8-5.6) Triglycerides Level 177mg/dL (0-149) Cholesterol Level 157mg/dL (100-199) LDL Cholesterol, Calculated 75.600mg/dL (0-99) VLDL Cholesterol 35.400mg/dL HDL Cholesterol 46mg/dL (>39) Cholesterol/HDL Ratio 3.41 (0.0-4.4) Vitamin B12 Level 518pg/mL (211-946) Hold Red Top Tube Received (Received) Hold Donora Top Tube Received (Received) Hold Urine Received (Received) Ammonia 38ug/dL (18-53) Urine Color Straw (YELLOW) Urine Appearance Clear (CLEAR,HAZY) Urine pH 6.0 (5.0-8.0) Urine Specific [place] 1.010 (1.003-1.035) Urine Protein Negativemg/dL (NEG,TRACE) Urine Glucose (UA) Negativemg/dL (NEGATIVE) Urine Ketones Negativemg/dL (NEGATIVE) Urine Occult Blood Trace (NEGATIVE) Urine Nitrite Negative (NEGATIVE) Urine Bilirubin Negative (NEGATIVE) Urine Urobilinogen Normalmg/dL (NORMAL) Urine Leukocyte Esterase Negative (NEGATIVE) Urine RBC 0-2/hpf (0-2) Urine WBC 0-5/hpf (0-5) Urine Epithelial Cells Occasional/hpf (NONE-MOD) Urine Crystals None seen (NONE SEEN) Urine Bacteria None/hpf (NONE-FEW) Urine Hyaline Casts None/lpf (NONE) Urine Granular Casts None seen (NONE SEEN) Urine Waxy Casts None seen (NONE SEEN) Urine Red Blood Cell Casts None seen (NONE SEEN) Urine White Blood Cell Casts None seen (NONE SEEN) Urine Mucus None seen (None Seen) Urine Trichomonas None seen (NONE SEEN) Urine Yeast None (NONE SEEN) Urinalysis Comment None Urine Culture Reflexed Not indicated Urine Opiates Screen Positive Urine Methadone Screen Negative Urine Barbiturates Screen Negative Urine Amphetamines Screen Negative Urine Benzodiazepines Screen Negative Urine Cocaine Metabolite Screen Negative Urine Cannabinoids Screen Negative Test 04/17/17 01:27 04/19/17 05:45 Erythrocyte Sedimentation Rate 10mm/hr (0-40) White Blood Count 9.3th/mm3 (3.8-10.1) Red Blood Count 4.12mil/mm3 (3.90-5.20) Hemoglobin 11.1g/dL (12.0-15.6) Hematocrit 35.9% (35.0-46.0) Mean Corpuscular Volume 87.1fL (81-100) Mean Corpuscular Hemoglobin 26.9pg (27.0-35.0) Mean Corpuscular Hemoglobin Concent 30.9% (32.0-37.0) Red Cell Distribution Width 13.5% (12.3-15.4) Platelet Count 243bil/L (150-400) Neutrophils (%) (Auto) 65.5% (40-74) Lymphocytes (%) (Auto) 20.2% (14-46) Monocytes (%) (Auto) 11.0% (4-12) Eosinophils (%) (Auto) 2.4% (0-5) Basophils (%) (Auto) 0.6% (0-3) Prothrombin Time 9.9sec (8.1-12.5) Prothromb Time International Ratio 0.93ratio Sodium Level 142mEq/L (134-144) Potassium Level 4.2mEq/L (3.5-5.2) Chloride Level 105mEq/L (97-108) Carbon Dioxide Level 25mmol/L (18-29) Blood Urea Nitrogen 23mg/dL (8-27) Creatinine 1.19mg/dL (0.57-1.00) Estimat Glomerular Filtration Rate 62mL/min (>59) Glucose Level 99mg/dL (60-99) Calcium Level 9.1mg/dL (8.5-10.1) Magnesium Level 2.0mg/dL (1.6-2.6) Total Bilirubin 0.2mg/dL (0.0-1.2) Aspartate Amino Transf (AST/SGOT) 14U/L (0-50) Alanine Aminotransferase (ALT/SGPT) 11U/L (0-32) Alkaline Phosphatase 74U/L (25-165) Total Protein 5.8g/dL (6.4-8.4) Albumin 3.8g/dL (3.4-5.0) Plan Impression Patient chart reviewed, patient interviewed and anesthestic plan with risks, benefits, and alternatives discussed, and informed consent obtained. NPO per Anesth. Guidelines: Yes ASA Physical Status: ASA3 Severe Disease Anesthetic Plan: GA Bene/Risks/Altern/Consents: Yes HP Complete Prior to Induction: Yes Binu Dietrich MD Apr 19, 2017 14:54
[2017-04-19] MEDS ORDERED: Lactated Ringer's 500 ML IV PRN (15:08)
[2017-04-19] MEDS ORDERED: MetoCLOpramide 5 mg/mL 2 mL Inj IVPUSH PRN (15:10)
[2017-04-19] MEDS ORDERED: Ondansetron 2 mg/mL 2 mL Inj IVPUSH PRN ×2 (15:10→15:45)
[2017-04-19] MEDS ORDERED: fentaNYL-PF 50 mCg/mL 2 mL Inj IVPUSH PRN (15:10)
[2017-04-19] MEDS ORDERED: EPHEDrine Sulfate 50 mg/mL Inj IVPUSH PRN (15:10)
[2017-04-19] MEDS ORDERED: Dexamethasone 4 mg/mL Inj IVPUSH PRN (15:10)
[2017-04-19] MEDS ORDERED: Phenylephrine 10,000 mCg/mL Inj IVPUSH PRN (15:10)
[2017-04-19] MEDS ORDERED: hydrALAZINE 20 mg/mL Inj IVPUSH PRN (15:10)
--- NOTE | 2017-04-19 16:49 | OP ---
[address] [address] OPERATIVE REPORT PATIENT: JOSÉ MIGUEL SNELL : 1935 MR#: [id number] ADMIT: 04/16/2017 JOB ID: [id number] DATE OF SURGERY: 04/19/2017 PREOPERATIVE DIAGNOSIS(ES): Symptomatic left internal carotid stenosis. POSTOPERATIVE DIAGNOSIS(ES): Symptomatic left internal carotid stenosis. PROCEDURE: 1. Left carotid endarterectomy with patch. 2. Cervical lymph node biopsy. SURGEON: Low Santillan MD. [employer]IES INSTALLER: Blas Villegas MD. INDICATIONS: An 81-year-old female, who was admitted with intermittent episodes of expressive aphasia which resolved completely. Her workup included a carotid duplex exam, which showed a left internal carotid stenosis at 70% to near occlusion. The left internal carotid to common carotid systolic peak ratio was four. There was progression compared to a previous duplex exam. She has had a previous right carotid endarterectomy [address] Armando Garcia and this showed a 50 to 69% stenosis. After discussing options with the patient, with her realizing there is a higher operative risk but also that statistically she would do better if we did a carotid endarterectomy within two weeks, she elected to proceed with an urgent left carotid endarterectomy. She was on both aspirin and Plavix preoperatively. FINDINGS: She had a hemorrhagic left carotid stenosis that started in the distal common and extended into the external and into the proximal internal but the degree of stenosis was really nowhere near a 70% to near occlusion. It was perhaps at best a 60% stenosis. She had pulsatile backflow from the distal internal carotid. She had normal inflow from the common carotid. She had several cervical nodes that were dissected and sent to Pathology as they were in the way of exposure but were grossly normal. The 12th cranial nerve was identified and preserved. The ansa cervicalis was divided. PROCEDURE: At the beginning and end of the operation, the SCOAP checklist was completed. An arterial line was placed. She was induced into general endotracheal anesthesia. Her neck was extended, rotated to the right, and prepped with ChloraPrep. The incision was designed and infiltrated with 1% lidocaine and 0.05% bupivacaine with epinephrine. After incising the skin, the platysma was divided with cautery. Dissection was carried down to the internal jugular and the common facial vein was identified and ligated with 3-0 silk suture ligatures. There were some smaller veins more cephalad coming off of the internal jugular and these were divided either with clips or with 3-0 silk suture ligatures. The common carotid was identified. Dissection was carried distally. The 12th cranial nerve was identified and in order to expose the distal internal carotid two veins crossing the 12th nerve were exposed and divided between clips. The internal carotid could then be identified where it was soft and distal to plaque. The external carotid was controlled with vessel loops as was the superior thyroid. The internal carotid was controlled with a vessel loop. She was heparinized with 5000 units of intravenous heparin. After 5 minutes, she was occluded 1st distally, then proximally. An arteriotomy was made in the common carotid and extended on through the plaque and onto the internal carotid. I initially attempted to place a Guerra shunt but there was some difficulty getting the internal carotid and she had pulsatile backflow and so I abandoned placement of the shunt. The endarterectomy was performed and the endarterectomized segment was irrigated with saline and there was only one loose filament. The arteriotomy was closed with a bovine pericardial patch with running 6-0 Prolene. There was one bleeding point that required an interrupted 6-0 Prolene. Before opening the flow into the internal carotid the internal carotid was backflushed into the common carotid followed by forward flushing of the common carotid into the external carotid. As stated above I needed to reocclude her briefly to place one interrupted 6-0 Prolene suture and she was again 1st backflushed and then forward flushed into the external carotid before forward flow into the internal carotid. At this point, there was no bleeding from the anastomosis but it was covered with FloSeal. She was observed for several minutes and there is no bleeding from the wound. The wound was closed with running 3-0 Vicryl in the platysma and running subcuticular 4-0 monofilament absorbable suture in the skin covered with Dermabond. The estimated blood loss was 40 cc mostly from a brief moment when the vessel loop around the common carotid came loose but was quickly repositioned. There were no apparent complications. Upon transporting her to the recovery room, she was awake. She was moving all her extremities, speaking normally, without any evidence of an intraoperative TIA or stroke and her tongue was midline. The final sponge, needle and instrument counts were announced as correct. In the recovery room she was stable.
[2017-04-19] MEDS: Lactated Ringer's 1,000 ML IV SCH ×2 (17:45→18:00)
[2017-04-19] MEDS: HYDROmorphone 1 mg/mL Inj IVPUSH PRN ×4 (17:49→18:15)
[2017-04-19] MEDS: Dextrose 5% Lactated Ringer's 1,000 ML IV SCH ×2 (19:58→23:42)
[2017-04-20] VITALS (8 sets, daily range): BP systolic 108–126; BP diastolic 35–55; PULSE 55–74; RESP 13–16; O2SAT 99–100
[2017-04-20] MEDS: Heparin 5,000 Unit/mL Inj SUBQ SCH ×2 (00:14→08:32)
[2017-04-20] MEDS: HYDROcodone-APAP 5-325 mg Tablet PO PRN ×3 (00:31→14:06)
[2017-04-20 03:45] LABS: BASOPHILS % (AUTO) 0.3 % (0-3); EOSINOPHILS % (AUTO) 1.1 % (0-5); MONOCYTES % (AUTO) 9.9 % (4-12); Mean Corpuscular Hemoglobin 27.4 pg (27.0-35.0); Mean Corpuscular Volume 88.8 fL (81-100); NEUTROPHILS % (AUTO) 74.9 % (40-74); Platelet Count 190 bil/L (150-400)
[2017-04-20] MEDS: Dextrose 5% Lactated Ringer's 1,000 ML IV SCH (04:49)
[2017-04-20] MEDS: Morphine ER 15 mg (MS Contin) Tablet PO SCH ×2 (08:31→14:30)
--- NOTE | 2017-04-20 11:08 | PROG NOTE ---
[address] [address] PROGRESS NOTE PATIENT: JOSÉ MIGUEL SNELL : 1935 MR#: [id number] ADMIT: 04/16/2017 JOB ID: [id number] DATE: 04/20/2017 SUBJECTIVE: The patient is seen in followup after her left carotid endarterectomy with patch angioplasty. She has done very well. Neurologically she has been intact. Her main complaint is a headache and some discomfort in her neck and back. She has chronic back problems and states that that is causing a lot of discomfort. She is swallowing without difficulty. OBJECTIVE: Temperature 36.5, pulse 74, blood pressure 116/39, saturation 100% on room air. In general, she is sitting up in a chair, in no acute distress. HEENT: Mucous membranes are moist. Pupils are equally round and reactive to light. Neck: Her left carotid endarterectomy incision is intact with no hematoma and no erythema. Neuro: Cranial nerves 2-12 are intact. Motor and sensory function are grossly intact. She is alert and oriented x3. LABORATORIES: White count 9.7, hematocrit 30.2, platelets 190, creatinine 1.03. ASSESSMENT AND PLAN: An 81-year-old woman with crescendo TIAs and left carotid stenosis, postoperative day one, status post left carotid endarterectomy with patch angioplasty. She is doing very well with no neurologic effects from the operation. I think she can be safely discharged from the hospital today. Per Dr. Santillan's recommendations, she does not need dual anti-platelet therapy but should be treated with just aspirin when she is discharged. She should followup with Dr. Santillan in two weeks for a postoperative check.
--- NOTE | 2017-04-20 12:21 | PCM.DIMED ---
Discharge Instructions Date of Service Apr 20, 2017 Dates of Hospitalization Apr 16, 2017 at 20:57 Discharge Diagnosis Discharge Diagnosis TIA in the setting of Lt carotid artery stenosis s/p endarterectomy Diet Discharge Diet: Low fat, Low Sodium, Heart Healthy Activity Discharge Activity: No restrictions Patient Instructions Patient Instructions You were hospitalized with symptoms concerning for stroke, You underwent surgical procedure given narrowing of your carotid artery on Rt side. Please continue aspirin recommended by , follow up his office in 2week for wound check. Follow-up Provider: Low Santillan MD Follow-up with PCP in: 2 weeks Grant Paulino MD Apr 20, 2017 12:21
--- NOTE | 2017-04-20 16:04 | PCM.DC.MED ---
Discharge Summary Date of Service Apr 20, 2017 Dates of Hospitalization Date of Hospital Admission Apr 16, 2017 at 20:57 Date of Discharge: Apr 20, 2017 Providers: Admitting Physician: Osmar Charles MD Primary Care Physician: Ten Douglass MD Attending Physician: Kwame Cole MD Diagnosis at Time of Discharge Diagnosis at Time of Discharge TIA in the setting of Lt carotid artery stenosis s/p endarterectomy Consultations surgery Procedures XRay, CTs & MRIs CT BRAIN WITHOUT CONTRAST ([id number]) IMPRESSION: 1. Decreased valencia-white differentiation of the left temporal lobe and overall increased left temporal lobe hypodensity suggesting subacute or early chronic infarct. If further characterization is warranted, noncontrast MRI of the brain may be helpful. This finding was discussed with at Dr. Puri 6:20 PM on 04/16/17. 2. Mild findings likely associated with chronic microvascular ischemic changes. Dictated by: Marcela Montague M.D. on 04/16/2017 at 18:14 Approved by: Marcela Montague M.D. on 04/16/2017 at 18:19 PROCEDURE: US BILATERAL DUPLEX DOPPLER IMAGING OF THE CAROTIDS ([id number]) INDICATIONS: TIA IMPRESSION: 1. Hemodynamically significant stenosis in the left ICA, 70% to near occlusion. Surgical consultation suggested. 2. 50-69% stenosis right ICA. 3. Both vertebral arteries show antegrade flow. Dictated by: Irvin Vincent M.D. on 04/17/2017 at 11:05 PROCEDURE: MRI BRAIN WITHOUT CONTRAST ([id number]) INDICATIONS: R/O CVA IMPRESSION: 1. No acute intracranial findings. Specifically, no acute or subacute infarct. 2. Mild findings likely associated with chronic microvascular ischemic changes. Dictated by: Marcela Montague M.D. on 04/17/2017 at 12:38 ECG 12 Lead Normal sinus rhythm with a rate of 61 Cardiac Echo Impression Interpretation Summary There is normal left ventricular wall thickness. The ejection fraction is estimated to be 60-65%. There is mild mitral regurgitation. The right ventricular systolic pressure is estimated at 20 mmHg assuming a right atrial pressure of 3 mm Hg. Compared to the prior echo report on 12.17.16, there is no significant change. Brief History HPI obtained by Dr. Flannery on 04/17 Barbara Travis is an 81-year-old woman with past medical history significant for diet controlled diabetes mellitus, hypertension, paroxysmal atrial fibrillation, and history of endarterectomy who presents for evaluation of decreased level of consciousness. Patient states she was in her normal state of health today until she went for dinner at 1545. The patient remembers arriving [facility] but cannot recall anything after this point. According to her friend who she was eating dinner with she began to have some slurred speech and nodded off and then proceeded to slump over in her chair. 911 was called and the patient was brought to the emergency department. The patient does not recall these events and according to the daughter and the ED physician she was quite groggy and repeatedly fell asleep initially on arrival to the hospital. At the time of my examination she was extremely clear and sharp and an excellent historian. She denies any preceding symptoms such as chest pain, shortness of breath, nausea, vomiting, headache, dizziness, lightheadedness, or palpitations. She does note that on Saturday, 04/15, she had a sharp headache that was located in the right temporal region along with right neck pain. The headache has since resolved although her neck is still slightly stiff. She states she has had previous workup for TIA but CT and MRI have never shown a definitive CVA. She was found to have a right 95% stenotic internal carotid artery which she underwent endarterectomy in 1999. Interestingly the patient also over the past 10 years has intermittently had episodes where suddenly she loses her vision. These episodes can last seconds to minutes and resolve on their own. On presentation to the ED the patient's vitals were temperature 36.5, pulse 60, respiratory rate 12, blood pressure 128/52, saturating 99% on room air. Labs were unremarkable aside from BUN of 38 and creatinine of 1.36 which the patient states is her baseline although I am unable to find labs to compare to. Urine tox screen was positive only for opiates which she does take morphine extended release 15 mg twice a day. The CT of the brain was completed in the ED which revealed decreased valencia white differentiation of the left temporal lobe and overall increased left temporal lobe hypodensity suggesting subacute to chronic infarct and mild findings likely associated with chronic microvascular ischemic changes. Hospital Course Barbara Travis is an 81-year-old woman with past medical history significant for diet controlled diabetes mellitus, hypertension, paroxysmal atrial fibrillation, and history of endarterectomy who presents for evaluation of decreased level of consciousness. patient admitted with Brief loss of consciousness and slurring of speech, concerning for CVA. workups negative for acute stroke, pt underwent Lt endarterectomy, tolerated well. pt was discharged on stable condition. plan to continue aspirin, follow up with in 2weeks for wound check. # Breief loss of consciousness and slurring of speech due to TIA , present on admission, resolved. - Urine tox screen negative aside from opioids which is congruent with patient' s home regimen of morphine extended release. - Monitor on continuous telemetry. #Recurrent TIAs, present on admission, active. patient had a TIA symptoms included slurred speech and patient has history of right internal carotid artery stenosis status post endarterectomy. Patient had also history of brief visual disturbance probably caused by TIA few weeks prior to presentation. She also reportedly had a episode of slurring of speech on 04/17 after current hospitalization, -Discussed case with neurology Dr. Diop , he recommends double antiplatelet with Plavix and aspirin pending surgical intervention. He also initially considered CT angiogram of brain to assess intracranial stenoses but deferred due to borderline creatinine clearance. Recommends urgent surgical intervention -Patient going to OR for endarterectomy today - Head CT without contrast results as above. MRI negative for acute stroke. - EKG showed normal sinus rhythm with rate of 61. - telemetry no arrythmia so far - Carotid shows left ICA 70% to near complete occlusion. Consulted surgery for evaluation of endarterectomy - Echo unremarkable - Allow for permissive hypertension to not treat unless SBP >220 or DBP >120. Hold losartan, amlodipine and hydrochlorothiazide - Aspirin 325 mg given. Started Plavix 75 mg daily 04/18 - Increased Atorvastatin to 40 mg from 10 mg daily #Hypertension, present on admission, chronic. - hold home regimen of amlodipine, hydrochlorothiazide, and losartan. #Hypothyroidism, present on admission, chronic. - Continue home regimen of levothyroxine. #Diabetes mellitus, present on admission, chronic. - Patient's last hemoglobin A1c was 5.8. She states that she is diet controlled does not take any medication. Disposition: Pending postop course Exam Vital Signs (Last) Date Time Temp Pulse Resp B/P Pulse Ox O2 Delivery O2 Flow Rate FiO2 04/20/17 12:30 36.9 59 16 126/40 100 Room Air 04/19/17 22:27 1.00 Exam pt was examined on the day of d/c Test 04/16/17 18:23 04/16/17 19:30 04/16/17 22:00 04/17/17 00:42 Hold Purple Top Tube Received (Received) Activated Partial Thromboplast Time 28.4sec (22.8-33.0) Hold Blue Top Tube Received (Received) Hemoglobin A1c 5.9% (4.8-5.6) Triglycerides Level 177mg/dL (0-149) Cholesterol Level 157mg/dL (100-199) LDL Cholesterol, Calculated 75.600mg/dL (0-99) VLDL Cholesterol 35.400mg/dL HDL Cholesterol 46mg/dL (>39) Cholesterol/HDL Ratio 3.41 (0.0-4.4) Vitamin B12 Level 518pg/mL (211-946) Hold Red Top Tube Received (Received) Hold [place] Top Tube Received (Received) Hold Urine Received (Received) Ammonia 38ug/dL (18-53) Urine Color Straw (YELLOW) Urine Appearance Clear (CLEAR,HAZY) Urine pH 6.0 (5.0-8.0) Urine Specific [place] 1.010 (1.003-1.035) Urine Protein Negativemg/dL (NEG,TRACE) Urine Glucose (UA) Negativemg/dL (NEGATIVE) Urine Ketones Negativemg/dL (NEGATIVE) Urine Occult Blood Trace (NEGATIVE) Urine Nitrite Negative (NEGATIVE) Urine Bilirubin Negative (NEGATIVE) Urine Urobilinogen Normalmg/dL (NORMAL) Urine Leukocyte Esterase Negative (NEGATIVE) Urine RBC 0-2/hpf (0-2) Urine WBC 0-5/hpf (0-5) Urine Epithelial Cells Occasional/hpf (NONE-MOD) Urine Crystals None seen (NONE SEEN) Urine Bacteria None/hpf (NONE-FEW) Urine Hyaline Casts None/lpf (NONE) Urine Granular Casts None seen (NONE SEEN) Urine Waxy Casts None seen (NONE SEEN) Urine Red Blood Cell Casts None seen (NONE SEEN) Urine White Blood Cell Casts None seen (NONE SEEN) Urine Mucus None seen (None Seen) Urine Trichomonas None seen (NONE SEEN) Urine Yeast None (NONE SEEN) Urinalysis Comment None Urine Culture Reflexed Not indicated Urine Opiates Screen Positive Urine Methadone Screen Negative Urine Barbiturates Screen Negative Urine Amphetamines Screen Negative Urine Benzodiazepines Screen Negative Urine Cocaine Metabolite Screen Negative Urine Cannabinoids Screen Negative Test 04/17/17 01:27 04/19/17 05:45 04/20/17 03:15 Erythrocyte Sedimentation Rate 10mm/hr (0-40) Prothrombin Time 9.9sec (8.1-12.5) Prothromb Time International Ratio 0.93ratio Magnesium Level 2.0mg/dL (1.6-2.6) White Blood Count 9.7th/mm3 (3.8-10.1) Red Blood Count 3.40mil/mm3 (3.90-5.20) Hemoglobin 9.3g/dL (12.0-15.6) Hematocrit 30.2% (35.0-46.0) Mean Corpuscular Volume 88.8fL (81-100) Mean Corpuscular Hemoglobin 27.4pg (27.0-35.0) Mean Corpuscular Hemoglobin Concent 30.8% (32.0-37.0) Red Cell Distribution Width 13.9% (12.3-15.4) Platelet Count 190bil/L (150-400) Neutrophils (%) (Auto) 74.9% (40-74) Lymphocytes (%) (Auto) 13.6% (14-46) Monocytes (%) (Auto) 9.9% (4-12) Eosinophils (%) (Auto) 1.1% (0-5) Basophils (%) (Auto) 0.3% (0-3) Sodium Level 141mEq/L (134-144) Potassium Level 4.1mEq/L (3.5-5.2) Chloride Level 104mEq/L (97-108) Carbon Dioxide Level 26mmol/L (18-29) Blood Urea Nitrogen 17mg/dL (8-27) Creatinine 1.03mg/dL (0.57-1.00) Estimat Glomerular Filtration Rate 73mL/min (>59) Glucose Level 129mg/dL (60-99) Calcium Level 8.5mg/dL (8.5-10.1) Total Bilirubin 0.2mg/dL (0.0-1.2) Aspartate Amino Transf (AST/SGOT) 16U/L (0-50) Alanine Aminotransferase (ALT/SGPT) 11U/L (0-32) Alkaline Phosphatase 65U/L (25-165) Total Protein 4.8g/dL (6.4-8.4) Albumin 3.1g/dL (3.4-5.0) Discharge Medications Discharge Medications Amlodipine (Amlodipine) 10 Mg Tablet 2.5 MG PO DAILY (Reported) Aspirin (Aspirin) 81 Mg Tablet 81 MG PO DAILY (Reported) Atorvastatin Calcium (Atorvastatin Calcium) 10 Mg Tablet 10 MG PO DAILY ( Reported) Hydrochlorothiazide (Hydrochlorothiazide) 25 Mg Tablet 25 MG PO QAM (Reported) Levothyroxine (Levothyroxine) 88 Mcg Tablet 88 MG PO DAILY (Reported) Losartan Potassium (Losartan Potassium) 100 Mg Tablet 100 MG PO QAM (Reported) Minocycline (Minocycline) 100 Mg Tablet 100 MG PO QAM (Reported) Morphine Sulfate ER (Morphine Sulfate ER) 15 Mg Tablet 15 MG PO TID (Reported) Zolpidem (Zolpidem) 5 Mg Tablet 2.5 MG PO HS (Reported) As needed Codeine Sulfate (Codeine Sulfate) 30 Mg Tablet 30 MG PO TID PRN PRN For Pain ( Reported) Followup Plan Disposition: home Discharge Diet: Low fat, Low Sodium, Heart Healthy Discharge Activity: No restrictions Patient Instructions You were hospitalized with symptoms concerning for stroke, You underwent surgical procedure given narrowing of your carotid artery on Rt side. Please continue aspirin recommended by , follow up his office in 2week for wound check. Follow-up Provider: Low Santillan MD Follow-up with PCP in: 2 weeks Time spent 65min Grant Paulino MD Apr 20, 2017 15:59
--- NOTE | 2017-04-23 11:13 | PATH ---
SURGICAL PATHOLOGY Attending Physician:Katharina Abrams CASE STATUS: Signed Out PATIENT NAME: JOSÉ MIGUEL SNELL PID: [id number] : 1935 DATE COLLECTED:04/19/2017 23:30 SPECIMEN: Lymph Node, Biopsy CLINICAL HISTORY: SYMPTOMATIC LEFT CAROTID STENOSIS 1). LEFT CERVICAL NODE FINAL DIAGNOSIS: Left Cervical Lymph Node, Excisional Biopsy: Benign reactive lymph node with no evidence of malignancy. ICD10: R59.0 GROSS DESCRIPTION: The specimen is received in formalin, labeled with the patient's name, sublabeled as left cervical node, and consists of multiple lymph nodes (0.4 x 0.2 x 0.2 cm-1.0 x 0.7 x 0.4 cm). Section code: (A) multiple intact lymph nodes; (B) one bisected lymph node. Specimen entirely submitted. 04/20/17 JM MICRO DESCRIPTION: Sections show a slightly enlarged lymph node with an intact architecture. There are proportionate increases in the cortex, paracortex and medulla. The sinusoids are patent and contain a uniform infiltrate of typical histiocytes. No atypical lymphoid infiltrate, metastatic malignancy, granulomas, or suppurative inflammation are identified. ICD-9 CODES: CPT CODES: 19463 Electronically Signed Out Marquise Hernandez MD, PhD [facility] [employer] [address], [place] [address] Technical component performed at [facility], [address] [place] [address] Ave[address], [place], [address]
--- NOTE | 2017-04-23 20:56 | PCM.ANEP1 ---
Post Anesthesia PACU Phase 1 Assessment Anesthetic Administered: GA Level of Alertness: Awake, talking Pain: No Pain Scale Score: 6 Nausea or Vomiting: No CV Function & Hydration Stable: Yes Airway Device: Oxygen Delivery: Room Air Lungs: Clear to Auscultation PACU Phase 2 Assessment Complications: No Follow up Care: No Patient Instructions Provided: N/A Binu Dietrich MD Apr 23, 2017 20:56
== END 2017-04-20 14:30 | disposition home or self-care (01) | DRG 39 ==
LOC: SED 16:57 → EDBD 16:57 → OSC 20:44 → UNDOADMOB 20:44 → OSC 20:57 → OBSVTOIN 20:57 → PCC 04-19 19:04
PROVIDERS: ADMIT Internal Medicine; ATTEND Internal Medicine
PROC: 07B20ZX Excision of Left Neck Lymphatic, Open Approach, Diagnostic (ICD-10-PCS; 2017-04-19)
PROC: 03CL0ZZ Extirpation of Matter from Left Internal Carotid Artery, Open Approach (ICD-10-PCS; principal; 2017-04-19 12:00)
DX: I65.22 Occlusion and stenosis of left carotid artery (principal); I10 Essential (primary) hypertension; I48.0 Paroxysmal atrial fibrillation; E11.8 Type 2 diabetes mellitus with unspecified complications; E03.9 Hypothyroidism, unspecified; R47.81 Slurred speech; R55 Syncope and collapse; E78.5 Hyperlipidemia, unspecified; H53.9 Unspecified visual disturbance; Z86.73 Personal history of transient ischemic attack (TIA), and cerebral infarction without residual deficits; Z87.891 Personal history of nicotine dependence; Z79.82 Long term (current) use of aspirin; Z88.0 Allergy status to penicillin